=== PATIENT | female | born 1970 | race Caucasian/White ===

== ENCOUNTER → 2016-10-01 | Outpatient (CLI) | payer MEDICARE, MEDICAID ==
[2015-07-25 06:39] VITALS: BP 107/58
[~2016-10-01] MED LIST: ABILIFY 15MG TA15 MG PO; ABILIFY20 MG PO; ADVAIR IH; AMOXICILLIN 50500 MG PO; BACTRIM DS 8001 TA1 PO; CALCIUM 500 + D1 TAB PO; CEFDINIR300 MG PO; CELEBREX 200MG200 MG PO; CELEBREX200 MG PO; CYMBALTA 60MG60 MG PO; DURAGESIC TD; FENTANYL TD; FERROUS SULFAT325 M1 PO; FLAGYL500 M1 PO; FLAX SEED OIL1000 MG PO; FLEXERIL10 MG PO; FLOVENT0.11 MG/AC IH; FOLIC ACID1 MG PO; FUROSEMIDE40 MG PO; GABAPENTIN300 MG PO; K-DUR 10 MEQ T10 MEQ PO; KLONOPIN 1MG1 M1 PO; KLONOPIN1 MG PO; KLONOPIN2 MG PO; LAMICTAL 100MG100 MG PO; LANSOPRAZOLE30 MG PO; LEVOTHROID0.137 MG PO; MIRALAX PA17 GM/Dose PO; NEXIUM40 MG PO; NORCO 325 MG-51 TAB PO; PEG 335017 GM/Dose PO; PLAQUENIL 200M200 MG PO; PREDNISONE 2.52.5 MG PO; PREDNISONE 5MG5 MG PO; PREDNISONE10 MG PO; PREVACID 30MG30 M1 PO; PROVENTIL0.09 MG/Ac IH; Patient's Own Medication SQ; REGLAN10 M2 PO; SYNTHROID 0.10.15 MG PO; SYNTHROID0.125 MG/T PO; THERAGRAN1 TA1 PO; TRIAMCINOLONE0.1% TP; VICTOZA6 MG/ML SQ; VITAMIN C PURE500 MG PO; VITAMIN D310000 UNI1 PO; VITAMIN D50000 I2 PO; WARFARIN SODIUM1 MG PO; WARFARIN4 MG PO; XANAX1 MG PO; [UNRECOGNIZED DRUG - OTHER] TD
== END ==
LOC: LAB 11:51
DX: E11.9 Type 2 diabetes mellitus without complications (principal)

== ENCOUNTER → 2017-01-21 | Outpatient (CLI) | payer MEDICARE, MEDICAID ==
[2015-07-25 06:39] VITALS: BP 107/58
[~2017-01-21] VITALS: Ht 157.5 cm; Wt 115.3 kg
== END ==
LOC: AMSURD 11:55 → LAB 11:55
DX: M06.89 Other specified rheumatoid arthritis, multiple sites (principal); E61.1 Iron deficiency; E11.9 Type 2 diabetes mellitus without complications; M81.0 Age-related osteoporosis without current pathological fracture; E78.2 Mixed hyperlipidemia
CPT/HCPCS: A4212; J1644

== ENCOUNTER → 2017-04-07 | Outpatient (CLI) | payer MEDICARE, MEDICAID ==
[~2017-04-07] VITALS: Ht 157.5 cm; Wt 108.2 kg
[2017-04-07 12:34] LABS: BASO # 0.1 (0.02-0.10); EOS # 0.2 (0.04-0.40); EOS % 1.5 % (1.0-5.0); HEMATOCRIT 39.8 % (37.0-47.0); HEMOGLOBIN 12.8 g/dL (12.5-16.0); MEAN CELL VOLUME 92 fl (78-100); MEAN CORPUSCULAR HEMOGLOBIN 30 pg (27-31); MEAN CORPUSCULAR HGB CONC 32 g/dL (33-37); MEAN PLATELET VOLUME 9.7 fl (7.4-10.4); MONO # 1.2 (0.20-0.80); PLATELET COUNT 374 K/mm3 (130-400); RED BLOOD COUNT 4.34 M/mm3 (4.10-5.30)
--- NOTE | 2017-04-07 12:35 | NUR ---
PT ARRIVES TO OUTPATIENT CLINIC TO HAVE LAB DRAWN FROM PORT AT THIS TIME, NO OTHER PROCEDURES OR TREATMENTS COMPLETED OUTSIDE OF LAB DRAW AND PORT ACCESS/DEACESS
[2017-04-07 12:36] VITALS: BP 115/62
[2017-04-07 12:36] LABS: NEU # 10.6 (1.40-6.50)
--- NOTE | 2017-04-07 12:47 | NUR ---
pt here less than 30 minutes, no need to obtain second set of vital signs
[2017-04-07 12:53] LABS: ALBUMIN 3.9 g/dL (3.5-5.0); BUN/CREATININE RATIO 21.9 (6.0-26.0); CALCIUM 8.9 mg/dL (8.4-10.2); POTASSIUM 3.6 mmol/L (3.6-5.0); TOTAL BILIRUBIN 0.3 mg/dL (0.2-1.3); TOTAL PROTEIN 7.9 g/dL (6.3-8.2)
== END ==
LOC: LAB 11:58
PROVIDERS: Internal Medicine
DX: M06.89 Other specified rheumatoid arthritis, multiple sites (principal); K31.84 Gastroparesis
CPT/HCPCS: J1644

== ENCOUNTER → 2017-04-14 | Outpatient (CLI) | payer MEDICARE, MEDICAID ==
[2017-04-07 12:36] VITALS: BP 115/62
[~2017-04-14] VITALS: Ht 157.5 cm; Wt 108.2 kg
[2017-04-14 12:07] LABS: EOS # 0.5 (0.04-0.40); EOS % 4.3 % (1.0-5.0); HEMATOCRIT 39.7 % (37.0-47.0); HEMOGLOBIN 12.5 g/dL (12.5-16.0); MEAN CELL VOLUME 92 fl (78-100); MEAN CORPUSCULAR HEMOGLOBIN 29 pg (27-31); MEAN CORPUSCULAR HGB CONC 32 g/dL (33-37); MEAN PLATELET VOLUME 9.9 fl (7.4-10.4); MONO # 0.8 (0.20-0.80); PLATELET COUNT 349 K/mm3 (130-400); RED BLOOD COUNT 4.31 M/mm3 (4.10-5.30); RED CELL DISTRIBUTION WIDTH 13.2 % (11.5-14.5); WHITE BLOOD COUNT 12.6 K/mm3 (4.8-10.8)
[2017-04-14 12:08] LABS: NEU # 9.3 (1.40-6.50)
== END ==
LOC: AMSURD 11:07 → LAB 11:07
PROVIDERS: Internal Medicine
DX: M06.89 Other specified rheumatoid arthritis, multiple sites (principal)
CPT/HCPCS: A4212; A4301

== ENCOUNTER → 2017-04-27 | Outpatient (CLI) | payer MEDICARE, MEDICAID ==
[~2017-04-27] VITALS: Ht 157.5 cm; Wt 108.2 kg
[2017-04-27 11:15] VITALS: BP 118/64
[2017-04-27 12:12] LABS: BASO # 0.1 (0.02-0.10); EOS # 0.4 (0.04-0.40); EOS % 2.9 % (1.0-5.0); HEMATOCRIT 38.7 % (37.0-47.0); HEMOGLOBIN 12.3 g/dL (12.5-16.0); MEAN CELL VOLUME 94 fl (78-100); MEAN CORPUSCULAR HEMOGLOBIN 30 pg (27-31); MEAN CORPUSCULAR HGB CONC 32 g/dL (33-37); MONO # 0.9 (0.20-0.80); PLATELET COUNT 352 K/mm3 (130-400); RED BLOOD COUNT 4.13 M/mm3 (4.10-5.30); RED CELL DISTRIBUTION WIDTH 13.1 % (11.5-14.5); WHITE BLOOD COUNT 13.4 K/mm3 (4.8-10.8)
[2017-04-27 12:20] LABS: BUN/CREATININE RATIO 14.2 (6.0-26.0); POTASSIUM 3.7 mmol/L (3.6-5.0)
[2017-04-27 12:23] LABS: NEU # 10.1 (1.40-6.50)
== END ==
LOC: AMSURD 10:59
PROVIDERS: Internal Medicine
DX: E11.9 Type 2 diabetes mellitus without complications (principal); D72.829 Elevated white blood cell count, unspecified; E27.49 Other adrenocortical insufficiency
CPT/HCPCS: A4301; J1644

== ENCOUNTER → 2017-08-03 | Outpatient (CLI) | payer MEDICARE, MEDICAID ==
[~2017-08-03] VITALS: Ht 157.5 cm; Wt 108.2 kg
[~2017-08-03] MED LIST changes: +SYMBICORT1 AE2 IH
[2017-08-03 13:22] VITALS: BP 132/76
[2017-08-03 13:23] LABS: EOS # 0.2 (0.04-0.40); EOS % 1.5 % (1.0-5.0); HEMATOCRIT 40.2 % (37.0-47.0); HEMOGLOBIN 12.6 g/dL (12.5-16.0); LYMPH# 1.8 (1.50-4.00); MEAN CELL VOLUME 93 fl (78-100); MEAN CORPUSCULAR HEMOGLOBIN 29 pg (27-31); MEAN CORPUSCULAR HGB CONC 31 g/dL (33-37); MEAN PLATELET VOLUME 9.1 fl (7.4-10.4); MONO # 1.1 (0.20-0.80); PLATELET COUNT 348 K/mm3 (130-400); RED BLOOD COUNT 4.33 M/mm3 (4.10-5.30); RED CELL DISTRIBUTION WIDTH 13.3 % (11.5-14.5); WHITE BLOOD COUNT 13.8 K/mm3 (4.8-10.8)
[2017-08-03 13:38] LABS: ALBUMIN 3.8 g/dL (3.5-5.0); BUN/CREATININE RATIO 13.5 (6.0-26.0); CALCIUM 8.8 mg/dL (8.4-10.2); POTASSIUM 3.7 mmol/L (3.6-5.0); TOTAL BILIRUBIN 0.1 mg/dL (0.2-1.3); TOTAL PROTEIN 7.6 g/dL (6.3-8.2)
[2017-08-03 14:22] LABS: NEU # 10.6 (1.40-6.50)
[2017-08-03 14:35] LABS: ERYTHROCYTE SEDIMENTATION RATE 56 mm/hr (0-20)
[2017-08-04 00:02] LABS: ESTRADIOL 94 pg/mL (()); FOLLICLE STIMULATING HORMONE 3.8 mIU/mL (()); LUTENIZING HORMONE 3.7 mIU/mL (())
== END ==
LOC: AMSURD 12:45
PROVIDERS: Internal Medicine
DX: E61.1 Iron deficiency (principal); E11.9 Type 2 diabetes mellitus without complications; M06.89 Other specified rheumatoid arthritis, multiple sites; M81.0 Age-related osteoporosis without current pathological fracture; E78.2 Mixed hyperlipidemia; E27.40 Unspecified adrenocortical insufficiency

== ENCOUNTER → 2017-10-07 | Outpatient (CLI) | payer MEDICARE, MEDICAID ==
[~2017-10-07] VITALS: Ht 157.5 cm; Wt 119.1 kg
[2017-10-07 13:02] VITALS: BP 102/54
[2017-10-07 13:27] LABS: EOS # 0.5 (0.04-0.40); EOS % 4.1 % (1.0-5.0); HEMATOCRIT 38.6 % (37.0-47.0); HEMOGLOBIN 12.4 g/dL (12.5-16.0); LYMPH# 2.1 (1.50-4.00); MEAN CELL VOLUME 93 fl (78-100); MEAN CORPUSCULAR HEMOGLOBIN 30 pg (27-31); MEAN CORPUSCULAR HGB CONC 32 g/dL (33-37); MEAN PLATELET VOLUME 9.6 fl (7.4-10.4); MONO # 0.9 (0.20-0.80); NEU # 7.9 (1.40-6.50); PLATELET COUNT 328 K/mm3 (130-400); RED BLOOD COUNT 4.16 M/mm3 (4.10-5.30); RED CELL DISTRIBUTION WIDTH 13.1 % (11.5-14.5); WHITE BLOOD COUNT 11.5 K/mm3 (4.8-10.8)
[2017-10-07 13:49] LABS: ALBUMIN 3.7 g/dL (3.5-5.0); BUN/CREATININE RATIO 20.9 (6.0-26.0); CALCIUM 8.8 mg/dL (8.4-10.2); POTASSIUM 3.9 mmol/L (3.6-5.0); TOTAL BILIRUBIN 0.1 mg/dL (0.2-1.3); TOTAL PROTEIN 7.5 g/dL (6.3-8.2)
[2017-10-07 14:16] LABS: PROTHROMBIN TIME 10.5 SECONDS (9.0-12.0)
[2017-10-07 14:39] LABS: PH-URINE 5.5 (5.0 - 8.0); URINE APPEARANCE CLEAR; URINE BILIRUBIN NEGATIVE (NEGATIVE); URINE BLOOD NEGATIVE (NEGATIVE); URINE COLOR YELLOW; URINE GLUCOSE NEGATIVE (NEGATIVE); URINE KETONE NEGATIVE (NEGATIVE); URINE LEUKOCYTE ESTERASE NEGATIVE (NEGATIVE); URINE NITRATE NEGATIVE (NEGATIVE); URINE PROTEIN(semi-quant) NEGATIVE (NEGATIVE); URINE UROBILINOGEN NORMAL (NORMAL); URINE WBC 0-1 /hpf (0-3)
[2017-10-08 00:21] LABS: CREATININE OTHER SOURCE 38 mg/dL (())
== END ==
LOC: AMSURD 12:02
PROVIDERS: Internal Medicine
DX: Z01.812 Encounter for preprocedural laboratory examination (principal); Z01.818 Encounter for other preprocedural examination; E27.49 Other adrenocortical insufficiency; Z79.01 Long term (current) use of anticoagulants; E03.4 Atrophy of thyroid (acquired); E11.9 Type 2 diabetes mellitus without complications; K90.89 Other intestinal malabsorption; M81.0 Age-related osteoporosis without current pathological fracture; J98.4 Other disorders of lung
CPT/HCPCS: A4212; J1644

== ENCOUNTER → 2017-11-24 | Outpatient (CLI) | payer MEDICARE, MEDICAID ==
[~2017-11-24] VITALS: Ht 157.5 cm; Wt 115.9 kg
[2017-11-24 11:58] LABS: EOS # 0.2 (0.04-0.40); EOS % 1.6 % (1.0-5.0); HEMATOCRIT 41.5 % (37.0-47.0); HEMOGLOBIN 13.1 g/dL (12.5-16.0); LYMPH# 1.4 (1.50-4.00); MEAN CELL VOLUME 93 fl (78-100); MEAN CORPUSCULAR HEMOGLOBIN 29 pg (27-31); MEAN CORPUSCULAR HGB CONC 32 g/dL (33-37); MEAN PLATELET VOLUME 9.6 fl (7.4-10.4); MONO # 0.8 (0.20-0.80); NEU # 8.6 (1.40-6.50); PLATELET COUNT 370 K/mm3 (130-400); RED BLOOD COUNT 4.48 M/mm3 (4.10-5.30); RED CELL DISTRIBUTION WIDTH 13.4 % (11.5-14.5); WHITE BLOOD COUNT 11.1 K/mm3 (4.8-10.8)
[2017-11-24 12:05] LABS: ALBUMIN 4.1 g/dL (3.5-5.0); BUN/CREATININE RATIO 16.1 (6.0-26.0); CALCIUM 8.5 mg/dL (8.4-10.2); POTASSIUM 3.6 mmol/L (3.6-5.0); TOTAL BILIRUBIN 0.2 mg/dL (0.2-1.3); TOTAL PROTEIN 8.3 g/dL (6.3-8.2)
[2017-11-24 12:40] VITALS: BP 136/86
== END ==
LOC: AMSURD 10:39
PROVIDERS: Internal Medicine
DX: E11.9 Type 2 diabetes mellitus without complications (principal); E27.49 Other adrenocortical insufficiency
CPT/HCPCS: A4301

== ENCOUNTER → 2017-12-09 | Outpatient (CLI) | payer MEDICARE, MEDICAID ==
[2017-11-24 12:40] VITALS: BP 136/86
== END ==
LOC: RAD 12:11
DX: Z87.81 Personal history of (healed) traumatic fracture (principal)

== ENCOUNTER → 2018-02-10 | Outpatient (CLI) | payer MEDICARE, MEDICAID ==
[~2018-02-10] VITALS: Ht 157.5 cm; Wt 115.9 kg
[2018-02-10 11:55] VITALS: BP 138/75
[2018-02-10 13:35] LABS: EOS # 0.2 (0.04-0.40); EOS % 1.9 % (1.0-5.0); HEMATOCRIT 39.1 % (37.0-47.0); HEMOGLOBIN 12.4 g/dL (12.5-16.0); LYMPH# 1.6 (1.50-4.00); MEAN CELL VOLUME 92 fl (78-100); MEAN CORPUSCULAR HEMOGLOBIN 29 pg (27-31); MEAN CORPUSCULAR HGB CONC 32 g/dL (33-37); NEU # 8.1 (1.40-6.50); PLATELET COUNT 324 K/mm3 (130-400); RED BLOOD COUNT 4.24 M/mm3 (4.10-5.30); RED CELL DISTRIBUTION WIDTH 14.5 % (11.5-14.5); WHITE BLOOD COUNT 10.9 K/mm3 (4.8-10.8)
[2018-02-10 13:40] LABS: ALBUMIN 3.8 g/dL (3.5-5.0); CALCIUM 8.6 mg/dL (8.4-10.2); POTASSIUM 3.9 mmol/L (3.6-5.0); TOTAL BILIRUBIN 0.2 mg/dL (0.2-1.3); TOTAL PROTEIN 7.1 g/dL (6.3-8.2)
== END ==
LOC: AMSURD 11:31
PROVIDERS: Internal Medicine
DX: Z01.812 Encounter for preprocedural laboratory examination (principal); E11.9 Type 2 diabetes mellitus without complications; K90.9 Intestinal malabsorption, unspecified; E27.40 Unspecified adrenocortical insufficiency; M81.0 Age-related osteoporosis without current pathological fracture
CPT/HCPCS: J1644

== ENCOUNTER → 2018-04-21 | Outpatient (CLI) | payer MEDICARE, MEDICAID ==
[2018-02-10 11:55] VITALS: BP 138/75
== END ==
LOC: RAD 12:19
DX: R06.02 Shortness of breath (principal)

== ENCOUNTER → 2018-05-05 | Outpatient (CLI) | payer MEDICARE, MEDICAID ==
[~2018-05-05] VITALS: Ht 157.5 cm; Wt 115.9 kg
[2018-05-05 12:01] VITALS: BP 129/94
[2018-05-05 12:28] LABS: EOS # 0.4 (0.04-0.40); EOS % 3.5 % (1.0-5.0); HEMATOCRIT 39.8 % (37.0-47.0); HEMOGLOBIN 12.8 g/dL (12.5-16.0); LYMPH# 2.1 (1.50-4.00); MEAN CELL VOLUME 92 fl (78-100); MEAN CORPUSCULAR HEMOGLOBIN 30 pg (27-31); MEAN CORPUSCULAR HGB CONC 32 g/dL (33-37); MEAN PLATELET VOLUME 9.7 fl (7.4-10.4); NEU # 6.7 (1.40-6.50); PLATELET COUNT 323 K/mm3 (130-400); RED BLOOD COUNT 4.34 M/mm3 (4.10-5.30); RED CELL DISTRIBUTION WIDTH 13.6 % (11.5-14.5); WHITE BLOOD COUNT 10.2 K/mm3 (4.8-10.8)
[2018-05-05 13:12] LABS: TOTAL BILIRUBIN 0.1 mg/dL (0.2-1.3); TOTAL PROTEIN 7.2 g/dL (6.3-8.2)
== END ==
LOC: AMSURD 11:23
PROVIDERS: Internal Medicine
DX: Z01.812 Encounter for preprocedural laboratory examination (principal); E27.40 Unspecified adrenocortical insufficiency; K90.9 Intestinal malabsorption, unspecified; E11.9 Type 2 diabetes mellitus without complications; M81.0 Age-related osteoporosis without current pathological fracture; M06.9 Rheumatoid arthritis, unspecified; Z95.828 Presence of other vascular implants and grafts

== ENCOUNTER → 2018-05-18 | Outpatient (CLI) | payer MEDICARE, MEDICAID ==
[2018-05-05 12:01] VITALS: BP 129/94
== END ==
LOC: RAD 16:04
DX: M95.4 Acquired deformity of chest and rib (principal); J98.4 Other disorders of lung; J18.9 Pneumonia, unspecified organism

== ENCOUNTER → 2018-06-15 | Outpatient (CLI) | payer MEDICARE, MEDICAID ==
[~2018-06-15] VITALS: Ht 157.5 cm; Wt 115.9 kg
[~2018-06-15] MED LIST changes: +BACITRACIN TOP O1 TU TOP; +BETA CAROT10000 UNIT PO; +CYCLOBENZAPRINE10 M1 PO; +DURAGESIC1 EAC3 TD; +DURAGESIC1 EACH TD; +FEOSOL325 MG PO; +FUROSEMIDE40 MG; +GLYCOLAX119 GM PO; +IPRATROPIUM BROM3 M1 IH; +LASIX20 M1 PO; +LEVAQUIN 5500 MG/TA1 PO; +LYRICA 150MG C150 MG PO; +LYRICA75 MG PO; +MASON NATURAL L20 MG PO; +MULTIVITAMIN PO; +OMEGA 3 1,0001 EACH PO; +PLAQUENIL200 MG PO; +RECLAST5 MG/100 M IV; +RT ALBUTEROL CC18 GM IH; +SYNTHROID RP0.1 MG PO; +THERA TEARS1 EACH OP; +VICTOZA 3-0.6 MG/0.1 SQ; +XARELTO20 MG PO
[2018-06-15 10:51] LABS: EOS # 0.3 (0.04-0.40); EOS % 3.3 % (1.0-5.0); HEMATOCRIT 40.1 % (37.0-47.0); HEMOGLOBIN 12.7 g/dL (12.5-16.0); LYMPH# 1.9 (1.50-4.00); MEAN CELL VOLUME 93 fl (78-100); MEAN CORPUSCULAR HEMOGLOBIN 29 pg (27-31); MEAN CORPUSCULAR HGB CONC 32 g/dL (33-37); MEAN PLATELET VOLUME 10.1 fl (7.4-10.4); MONO # 0.9 (0.20-0.80); NEU # 6.3 (1.40-6.50); PLATELET COUNT 317 K/mm3 (130-400); RED BLOOD COUNT 4.32 M/mm3 (4.10-5.30); RED CELL DISTRIBUTION WIDTH 13.4 % (11.5-14.5); WHITE BLOOD COUNT 9.5 K/mm3 (4.8-10.8)
[2018-06-15 10:54] LABS: ALBUMIN 3.9 g/dL (3.5-5.0); CALCIUM 8.6 mg/dL (8.4-10.2); POTASSIUM 3.5 mmol/L (3.6-5.0); TOTAL BILIRUBIN 0.1 mg/dL (0.2-1.3); TOTAL PROTEIN 7.1 g/dL (6.3-8.2)
[2018-06-15 11:34] VITALS: BP 128/77
== END ==
LOC: LAB 09:22
PROVIDERS: Internal Medicine
DX: M06.9 Rheumatoid arthritis, unspecified (principal); Z95.828 Presence of other vascular implants and grafts

== ENCOUNTER → 2018-07-07 | Outpatient (CLI) | payer MEDICARE, MEDICAID ==
[2018-06-15 11:34] VITALS: BP 128/77
[2018-07-07 11:39] LABS: CALCIUM 8.7 mg/dL (8.4-10.2); HEMATOCRIT 40.9 % (37.0-47.0); HEMOGLOBIN 13.1 g/dL (12.5-16.0); MEAN CELL VOLUME 92 fl (78-100); MEAN CORPUSCULAR HEMOGLOBIN 30 pg (27-31); MEAN CORPUSCULAR HGB CONC 32 g/dL (33-37); MEAN PLATELET VOLUME 9.7 fl (7.4-10.4); PLATELET COUNT 301 K/mm3 (130-400); POTASSIUM 3.8 mmol/L (3.6-5.0); RED BLOOD COUNT 4.43 M/mm3 (4.10-5.30); RED CELL DISTRIBUTION WIDTH 13.8 % (11.5-14.5); TOTAL BILIRUBIN 0.4 mg/dL (0.2-1.3); TOTAL PROTEIN 7.6 g/dL (6.3-8.2); WHITE BLOOD COUNT 13.2 K/mm3 (4.8-10.8)
[2018-07-07 12:14] LABS: LYMPHOCYTE 10 % (20-51); MONOCYTE 6 % (3-10); NEUTROPHILS 80 % (42-75)
[2018-07-07 12:29] LABS: URINE APPEARANCE CLEAR; URINE COLOR YELLOW
[2018-07-07 12:30] LABS: URINE BILIRUBIN NEGATIVE (NEGATIVE); URINE BLOOD NEGATIVE (NEGATIVE); URINE GLUCOSE NEGATIVE (NEGATIVE); URINE KETONE NEGATIVE (NEGATIVE); URINE LEUKOCYTE ESTERASE NEGATIVE (NEGATIVE); URINE NITRATE NEGATIVE (NEGATIVE); URINE PROTEIN(semi-quant) NEGATIVE (NEGATIVE); URINE UROBILINOGEN NORMAL (NORMAL); URINE WBC 0-1 /hpf (0-3)
== END ==
LOC: RAD 11:12
PROVIDERS: Internal Medicine
DX: K76.0 Fatty (change of) liver, not elsewhere classified (principal); R10.31 Right lower quadrant pain; E11.9 Type 2 diabetes mellitus without complications; M06.9 Rheumatoid arthritis, unspecified

== ENCOUNTER → 2018-12-01 | Outpatient (CLI) | payer MEDICARE, MEDICAID ==
[~2018-12-01] VITALS: Ht 157.5 cm; Wt 115.9 kg
[2018-12-01 10:56] LABS: EOS # 0.3 (0.04-0.40); EOS % 3.6 % (1.0-5.0); HEMOGLOBIN 12.4 g/dL (12.5-16.0); LYMPH# 2.1 (1.50-4.00); MEAN CELL VOLUME 93 fl (78-100); MEAN CORPUSCULAR HEMOGLOBIN 29 pg (27-31); MEAN CORPUSCULAR HGB CONC 31 g/dL (33-37); MEAN PLATELET VOLUME 9.6 fl (7.4-10.4); MONO # 0.9 (0.20-0.80); PLATELET COUNT 300 K/mm3 (130-400); RED CELL DISTRIBUTION WIDTH 13.9 % (11.5-14.5); WHITE BLOOD COUNT 9.3 K/mm3 (4.8-10.8)
[2018-12-01 11:25] LABS: ALBUMIN 3.6 g/dL (3.5-5.0); CALCIUM 9.4 mg/dL (8.3-10.5); POTASSIUM 3.7 mmol/L (3.5-5.1); TOTAL BILIRUBIN 0.3 mg/dL (0.2-1.2); TOTAL PROTEIN 7.2 g/dL (6.4-8.3)
[2018-12-01 12:16] VITALS: BP 108/62
[2018-12-01 12:41] LABS: URINE COLOR YELLOW
[2018-12-01 12:42] LABS: URINE APPEARANCE CLEAR; URINE BILIRUBIN NEGATIVE (NEGATIVE); URINE BLOOD NEGATIVE (NEGATIVE); URINE GLUCOSE NEGATIVE (NEGATIVE); URINE KETONE NEGATIVE (NEGATIVE); URINE LEUKOCYTE ESTERASE NEGATIVE (NEGATIVE); URINE NITRATE NEGATIVE (NEGATIVE); URINE PROTEIN(semi-quant) TRACE mg/dL (NEGATIVE); URINE UROBILINOGEN NORMAL (NORMAL)
[2018-12-01 14:13] LABS: ERYTHROCYTE SEDIMENTATION RATE 78 mm/hr (0-20)
[2018-12-01 22:34] LABS: CREATININE OTHER SOURCE 8 mg/dL (())
== END ==
LOC: AMSURD 10:20 → LAB 10:20
PROVIDERS: Internal Medicine
DX: E11.9 Type 2 diabetes mellitus without complications (principal); M06.9 Rheumatoid arthritis, unspecified; E03.9 Hypothyroidism, unspecified; K90.9 Intestinal malabsorption, unspecified; E61.1 Iron deficiency; M81.0 Age-related osteoporosis without current pathological fracture
CPT/HCPCS: J1644

== ENCOUNTER → 2019-01-05 | Outpatient (CLI) | payer MEDICARE, MEDICAID ==
[2018-12-01 12:16] VITALS: BP 108/62
== END ==
LOC: RAD 10:12
DX: R06.02 Shortness of breath (principal)

== ENCOUNTER → 2019-05-04 | Outpatient (CLI) | payer MEDICARE, MEDICAID ==
[2019-02-24 11:05] VITALS: BP 132/75
[~2019-05-04] MED LIST changes: +AMBIEN CR12.5 MG PO; +DULCOLAX PO; +GAVILAX17 GM/Dose PO; +KLONOPIN 0.5MG0.5 MG PO; +LASIX80 M1 PO; +LEVAQUIN 750MG750 M1 PO; +NATURAL VITAM1000 MG PO
== END ==
LOC: RAD 14:58
DX: Z87.01 Personal history of pneumonia (recurrent) (principal)

== ENCOUNTER → 2019-06-07 | Outpatient (CLI) | payer MEDICARE, MEDICAID ==
[~2019-06-07] VITALS: Ht 157.5 cm; Wt 120.5 kg
[2019-06-07 11:36] VITALS: BP 117/65
[2019-06-07 11:37] LABS: BASO # 0.1 (0.02-0.10); EOS # 0.4 (0.04-0.40); EOS % 4.5 % (1.0-5.0); HEMATOCRIT 39.9 % (37.0-47.0); HEMOGLOBIN 12.6 g/dL (12.5-16.0); LYMPH# 1.9 (1.50-4.00); MEAN CELL VOLUME 94 fl (78-100); MEAN CORPUSCULAR HEMOGLOBIN 30 pg (27-31); MEAN CORPUSCULAR HGB CONC 32 g/dL (33-37); MEAN PLATELET VOLUME 10.2 fl (7.4-10.4); MONO # 0.8 (0.20-0.80); NEU # 6.4 (1.40-6.50); PLATELET COUNT 317 K/mm3 (130-400); RED BLOOD COUNT 4.24 M/mm3 (4.10-5.30); RED CELL DISTRIBUTION WIDTH 12.7 % (11.5-14.5); WHITE BLOOD COUNT 9.6 K/mm3 (4.8-10.8)
[2019-06-07 11:45] LABS: POTASSIUM 3.9 mmol/L (3.5-5.1)
[2019-06-07 11:46] LABS: ALBUMIN 3.6 g/dL (3.5-5.0)
[2019-06-07 11:47] LABS: CALCIUM 8.8 mg/dL (8.3-10.5)
[2019-06-07 11:48] LABS: TOTAL PROTEIN 7.1 g/dL (6.4-8.3)
[2019-06-07 11:50] LABS: TOTAL BILIRUBIN 0.2 mg/dL (0.2-1.2)
[2019-06-07 11:55] LABS: MAGNESIUM 1.81 mg/dL (1.60-2.60)
[2019-06-07 12:40] LABS: ERYTHROCYTE SEDIMENTATION RATE 54 mm/hr (0-20)
== END ==
LOC: AMSURD 10:58
PROVIDERS: Internal Medicine
DX: E11.9 Type 2 diabetes mellitus without complications (principal); E61.1 Iron deficiency; K90.9 Intestinal malabsorption, unspecified; M06.9 Rheumatoid arthritis, unspecified; E03.9 Hypothyroidism, unspecified
CPT/HCPCS: J1644

== ENCOUNTER 2019-08-24 10:39 | Inpatient (IN) | payer MEDICARE, MEDICAID ==
[~2019-08-24] VITALS: Ht 162.6 cm; Wt 119.1 kg
[~2019-08-24 10:39] MED LIST changes: -BACITRACIN3.5 GM OP; -CYMBALTA60 M1 PO; -GAVILAX17 GM PO; -GLUCOPHAGE500 MG/TAB PO; -HYDROCORTISONE 10MG PO; -LAMICTAL150 MG PO; -POTASSIUM CHLO10 ME6 PO; -TIROSINT75 MC1 PO
[2019-08-24] MEDS ORDERED: GLUCOPHAGE500 MG/TAB PO (10:49)
[2019-08-24] MEDS ORDERED: POTASSIUM CHLO10 ME6 PO (10:52)
[2019-08-24] MEDS ORDERED: GAVILAX17 GM PO (10:53)
[2019-08-24] MEDS ORDERED: IPRATROPIUM BROM3 M1 IH (10:57)
[2019-08-24] MEDS ORDERED: BACITRACIN3.5 GM OP (11:00)
[2019-08-24] MEDS ORDERED: VICTOZA 3-0.6 MG/0.1 SQ (11:07)
[2019-08-24 11:36] VITALS: BP 150/86
[2019-08-24 11:57] LABS: HEMATOCRIT 42.5 % (37.0-47.0); HEMOGLOBIN 13.4 g/dL (12.5-16.0); MEAN CELL VOLUME 93 fl (78-100); MEAN CORPUSCULAR HEMOGLOBIN 30 pg (27-31); MEAN CORPUSCULAR HGB CONC 32 g/dL (33-37); PLATELET COUNT 279 K/mm3 (130-400); RED BLOOD COUNT 4.55 M/mm3 (4.10-5.30); RED CELL DISTRIBUTION WIDTH 12.5 % (11.5-14.5); WHITE BLOOD COUNT 7.1 K/mm3 (4.8-10.8)
[2019-08-24 12:06] LABS: POTASSIUM 3.6 mmol/L (3.5-5.1)
[2019-08-24 12:08] LABS: TOTAL PROTEIN 7.7 g/dL (6.4-8.3)
[2019-08-24 12:10] LABS: TOTAL BILIRUBIN 0.4 mg/dL (0.2-1.2)
--- NOTE | 2019-08-24 12:15 | NUR ---
PT ADMITTED TO ROOM 208 PER , PT STABLE AND BREATHING ON 3L O2 VIA NC, PT CONTINUOUSLY ON 3L AT HOME WELL, PORT ACCESSED, BRISK BLOOD RETURN, LABS OBTAINED AND SENT TO LAB, WILL COLLECT UA WITH PT'S FIRST VOID, PT AMBULATORY AROUND ROOM, STEADY GAIT, SOB WITH REST AND DURING EXERTION, O2 95% ON 3L WITH AMBULATION, FULLY ALERT AND ORIENTED, SMILING AND TALKATIVE WITH STAFF, DENIES FURTHER NEEDS, ORIENTED TO NEW ROOM AND CALL LIGHT WELL BED ALARM SYSTEM
[2019-08-24 12:16] LABS: LYMPHOCYTE 29 % (20-51); MONOCYTE 13 % (3-10); NEUTROPHILS 57 % (42-75)
--- NOTE | 2019-08-24 12:29 | NUR ---
PT HAS 2 FENTANYL PATCHES ON UPPER BACK, 100MCG FENTANYL PATCH AND 25MCG FENTANYL PATCH, PT REPORTS SHE CHANGED THEM YESTERDAY, SO THEY WILL BE DUE TO BE CHANGED TOMORROW
[2019-08-24 12:55] LABS: URINE APPEARANCE CLEAR; URINE COLOR YELLOW
[2019-08-24 12:56] LABS: URINE BILIRUBIN NEGATIVE (NEGATIVE); URINE BLOOD NEGATIVE (NEGATIVE); URINE GLUCOSE NEGATIVE (NEGATIVE); URINE KETONE NEGATIVE (NEGATIVE); URINE LEUKOCYTE ESTERASE NEGATIVE (NEGATIVE); URINE NITRATE NEGATIVE (NEGATIVE); URINE PROTEIN(semi-quant) TRACE mg/dL (NEGATIVE); URINE UROBILINOGEN NORMAL (NORMAL)
[2019-08-24 14:00] VITALS: BP 143/80
[2019-08-24] MEDS ORDERED: KLONOPIN 0.5MG0.5 MG PO (17:10)
[2019-08-24] MEDS ORDERED: TIROSINT75 MC1 PO (17:11)
[2019-08-24] MEDS ORDERED: LYRICA 150MG C150 MG PO ×2 (17:12→17:13)
[2019-08-24] MEDS ORDERED: LAMICTAL150 MG PO (17:15)
[2019-08-24] MEDS ORDERED: HYDROCORTISONE 10MG PO ×2 (17:18)
[2019-08-24] MEDS ORDERED: CYMBALTA60 M1 PO (17:21)
[2019-08-24 18:11] VITALS: BP 135/78
--- NOTE | 2019-08-24 19:30 | NUR ---
Report received from Sadie Srinivasan RN
[2019-08-24 22:11] VITALS: BP 113/68
--- NOTE | 2019-08-24 22:20 | NUR ---
Pt awake and a/o x 3, sitting up in bed watching TV. Denied having any pain or needs. Pt informed me she was no longer taking Victoza SQ. That she was now on metformin 3000mg PO every day. I reviewed her home medication and told her that her home medication list show she was taking metformin 1500mg PO daily. She then stated, "oh, that's right, we hadn't worked up to 3000mg yet." Dr Martin called and notified. Order received to [facility] victoza. Dr Martin notified of blood sugar, order received from insulin novolin R 5units SQ now.
[2019-08-25 01:44] VITALS: BP 112/57
[2019-08-25 06:19] VITALS: BP 138/62
--- NOTE | 2019-08-25 07:50 | NUR ---
Report given to Missy Hoang RN
[2019-08-25 10:38] VITALS: BP 131/75
--- NOTE | 2019-08-25 10:38 | NUR ---
EXCELSIOR MACHINE FEEDER REPORTS PT IS "NOT NORMAL, SHE IS FALLING ASLEEP MID CONVERSATION AND JUST DOES NOT SEEM RIGHT," THIS NURSE PRESENTS TO ROOM TO ASSESS PT, PT IS SITTING UP IN CHAIR, DIAPHORETIC AND FLUSHED, PT ANSWERS QUESTIONS APPROPRIATELY BUT DOES HAVE INTERMITTENT CONFUSION, PT REPORTS SHORT TERM MEMORY LOSS PER BASELINE, PT'S VITAL SIGNS AND BG OBTAINED, BP:131/75 HR:106 RR:20 02:94% ON 3L O2 VIA NC, TEMP:97.9, PT KEEPS STATING "I AM JUST TIRED, I DIDN'T SLEEP AT ALL LAST NIGHT, THIS IS NORMAL FOR ME," PT ASSISTED INTO BED, THIS NURSE ASSISTED IN STARTING A [employer] DEVOTIONAL ON PT'S PHONE FOR HER PER HER REQUEST, LIGHTS DIMMED, PT REPORTS SHE IS COMFORTABLE IN BED, A FAN AND BLANKET IS PROVIDED FOR COMFORT, PT LESS FLUSHED UPON EXITING ROOM AND LESS DIAPHORETIC, THIS NURSE ASSESSED PT FOR APPROX 10 MINUTES AND DID NOTICE AND IMPROVEMENT IN MENTATION AND PHYSICAL APPEARANCE THROUGHOUT THE CONVERSATION, PT IN BED WITH CALL LIGHT WITHIN REACH AND DOOR OPEN UPON REQUEST UPON EXITING ROOM, NOTIFIED JIMMIE RAINEY RN (PT'S PRIMARY NURSE), JIMMIE Huertas STATES SHE IS GOING TO NOTIFY
[2019-08-25 14:20] VITALS: BP 154/78
[2019-08-25 18:50] VITALS: BP 123/67
--- NOTE | 2019-08-25 21:30 | NUR ---
Patient alert and oriented x 4 and watching television. Patient's blood glucose at 252 so provided 6 units of novolog on sliding scale. Lungs ausculated and lower bases bilaterally diminished. Oxygen at 2L upon assessment so O2 changed to 3L per order and 3L is patients oxygen level at home. Patient reports normal 6/10 pain in mid back as her baseline and refused medication. Patient educated to rinse mouth after breathing treatments to prevent thrush. Patient confirmed understanding. Central line, port a cath, showed blood return and was flushed with 10ml of NS. Patient odor indicates need for proper hygiene care but refuses showers. Patient says that showers cause pain in her legs.
[2019-08-25 22:47] VITALS: BP 131/78
[2019-08-26] VITALS (7 sets, daily range): BP systolic 107–133; BP diastolic 65–91
--- NOTE | 2019-08-26 07:21 | NUR ---
Report given to ROSA MARIA Ba.
--- NOTE | 2019-08-26 08:30 | NUR ---
Pt sitting up in chair at bedside. Cheerful. a/o x 4 02 at 2L/NC. Right chest port remains accessed - clamped. Drsg intact. Pt states is SOB with exertion but denies SOB at rest. States has upper back pain - chronic. Pt reports she lives alone. Dad called to bring her some clean socks and will be in shortly. Pt refuses shower (water on legs feel like wax) but is agreeable to bath wipes to bath with. Reports bowels working well. Call light in reach and chair alarm on.
--- NOTE | 2019-08-26 11:45 | NUR ---
Pt ambulates in [place] w/ staff w/ oxygen at 2 l/NC w/ CGA. Ambulates about 50 ft - sp02 check 90-91% on 2 L/NC w/ HR of 105. Ambulates another approx 50 feet and sp02 check and HR the same. Returns to recliner in room for lunch. Pt drinking her 2 liter of diet coke at this beside - father to bring her more today as that is all she drinks. Call light in reach and chair alarm on.
--- NOTE | 2019-08-26 16:00 | NUR ---
Pt's dad here and brings her new socks etc.
--- NOTE | 2019-08-26 17:45 | NUR ---
Lungs with expiratory wheezes noted more on right than left in all dow. Possibly a few insp crackles in bases. 02 continues at 3 L/NC today. Refuses need for pain med for continued upper back pain.
--- NOTE | 2019-08-26 20:01 | NUR ---
Report to ROSA MARIA Wade
--- NOTE | 2019-08-26 21:00 | NUR ---
Patient resting in bed with HOB at 35degrees. 3L NC present. Patient denies dizzyness, SOB, or CP at this time. Found to have expiratory wheezes upon assessment. Scheduled nebulizers given. Patient does have some shaking noted with upper extremities durring assessment, does not appear to be consistant with activity. Patient reports it has improved. Assisted patient to bathroom, steady on feet, standby assist no walker, denies SOB with activity. Right subclavian port is accessed and flushes well. No S/S of concern. Patient reports she has chronic back pain at a level 5 to 6 and this is tolerable. Fentanyl patch is present and scheduled lyrica given. FSBS 356 per sliding scale order patient was given 10units novolog sub Q in lateral right upper arm. Reviewed S/S of hypoglycemia, call light within reach. Will continue to monitor.
[2019-08-27 02:23] VITALS: BP 157/76
[2019-08-27 05:53] VITALS: BP 137/80
[2019-08-27 10:04] VITALS: BP 136/78
[2019-08-27 14:15] VITALS: BP 153/89
--- NOTE | 2019-08-27 15:14 | NUR ---
Met with pt to discuss discharge plans. Pt currently lives alone but her father lives nearby and is able to help her as needed. Pt also receives house-hold care through [address] [place] [id number]. Pt feels the only thing she needs help with is bathing. Reports that she in not able to fully clean herself. [facility] unsure [facility] are [facility] to help with this task. Spoke with Birdie at [address] [place] [address] and she stated that the pt would need to ask her "workers" if they could provide bathing assistance. Also, will bring pt [employer]gov Home Health Agency List to see if she would be interested in HH.
--- NOTE | 2019-08-27 17:00 | NUR ---
Jessica Bartholomew APRN at bedside.
[2019-08-27 18:11] VITALS: BP 162/99
[2019-08-27 21:42] VITALS: BP 137/81
[2019-08-28 01:50] VITALS: BP 165/85
[2019-08-28 05:30] VITALS: BP 157/82
--- NOTE | 2019-08-28 08:55 | NUR ---
DC PAPERWORK REVIEWED AND UNDERSTOOD BY PT, NO NEW MEDICATIONS, PT EDUCATED TO MAKE A FOLLOW UP APPT WITH WITHIN THE NEXT 2 WEEKS, FATHER PROVIDING TRANSPORTATION HOME, PORT HEPARINIZED DEACCESSED, PT IN STABLE CONDITION, REPORTS GREAT IMPROVEMENT SINCE ADMISSION, SMILING AND COOPERATIVE, DENIES FURTHER NEEDS AT THIS TIME
== END 2019-08-28 08:55 | disposition home or self-care (01) | DRG 191 ==
LOC: MED/SURG 10:39
PROVIDERS: ADMIT Internal Medicine
DX: J44.1 Chronic obstructive pulmonary disease with (acute) exacerbation (principal); Z68.42 Body mass index [BMI] 45.0-49.9, adult; E11.43 Type 2 diabetes mellitus with diabetic autonomic (poly)neuropathy; K31.84 Gastroparesis; M06.9 Rheumatoid arthritis, unspecified; E03.9 Hypothyroidism, unspecified; J22 Unspecified acute lower respiratory infection; M32.9 Systemic lupus erythematosus, unspecified; M35.00 Sjogren syndrome, unspecified; M81.0 Age-related osteoporosis without current pathological fracture; F32.9 Major depressive disorder, single episode, unspecified; M35.9 Systemic involvement of connective tissue, unspecified; G47.33 Obstructive sleep apnea (adult) (pediatric); K21.9 Gastro-esophageal reflux disease without esophagitis; K76.0 Fatty (change of) liver, not elsewhere classified; E66.01 Morbid (severe) obesity due to excess calories; E78.5 Hyperlipidemia, unspecified; G89.4 Chronic pain syndrome; Z79.01 Long term (current) use of anticoagulants; Z91.14 Patient's other noncompliance with medication regimen
CPT/HCPCS: A4216; A4340; J0456; J0696; J1644; J1815; J2930; J7050

== ENCOUNTER → 2019-08-24 | Outpatient (CLI) | payer MEDICARE, MEDICAID ==
[2019-06-07 11:36] VITALS: BP 117/65
[~2019-08-24] MED LIST changes: +BACITRACIN3.5 GM OP; +CYMBALTA60 M1 PO; +GAVILAX17 GM PO; +GLUCOPHAGE500 MG/TAB PO; +HYDROCORTISONE 10MG PO; +LAMICTAL150 MG PO; +POTASSIUM CHLO10 ME6 PO; +TIROSINT75 MC1 PO
== END ==
LOC: RAD 09:12
DX: Z87.01 Personal history of pneumonia (recurrent) (principal)

== ENCOUNTER → 2019-10-25 | Outpatient (CLI) | payer MEDICARE, MEDICAID ==
[~2019-10-25] VITALS: Ht 162.6 cm; Wt 119.1 kg
[~2019-10-25] MED LIST changes: +BACITRACIN3.5 GM OP; +CYMBALTA60 M1 PO; +GAVILAX17 GM PO; +GLUCOPHAGE500 MG/TAB PO; +HYDROCORTISONE 10MG PO; +LAMICTAL150 MG PO; +POTASSIUM CHLO10 ME6 PO; +TIROSINT75 MC1 PO
[2019-10-25 11:58] LABS: BASO # 0.1 (0.02-0.10); EOS # 0.2 (0.04-0.40); EOS % 1.6 % (1.0-5.0); HEMATOCRIT 40.4 % (37.0-47.0); HEMOGLOBIN 12.8 g/dL (12.5-16.0); MEAN CELL VOLUME 92 fl (78-100); MEAN CORPUSCULAR HEMOGLOBIN 29 pg (27-31); MEAN CORPUSCULAR HGB CONC 32 g/dL (33-37); MEAN PLATELET VOLUME 10.1 fl (7.4-10.4); MONO # 0.8 (0.20-0.80); NEU # 8.7 (1.40-6.50); PLATELET COUNT 308 K/mm3 (130-400); RED BLOOD COUNT 4.39 M/mm3 (4.10-5.30); RED CELL DISTRIBUTION WIDTH 13.2 % (11.5-14.5); WHITE BLOOD COUNT 11.8 K/mm3 (4.8-10.8)
[2019-10-25 12:00] VITALS: BP 137/68
[2019-10-25 12:19] LABS: POTASSIUM 3.9 mmol/L (3.5-5.1)
[2019-10-25 12:20] LABS: CALCIUM 9.2 mg/dL (8.3-10.5)
[2019-10-25 12:22] LABS: TOTAL PROTEIN 7.4 g/dL (6.4-8.3)
[2019-10-25 12:24] LABS: TOTAL BILIRUBIN 0.3 mg/dL (0.2-1.2)
[2019-10-25 12:29] LABS: MAGNESIUM 1.85 mg/dL (1.60-2.60)
[2019-10-25 12:59] LABS: ERYTHROCYTE SEDIMENTATION RATE 81 mm/hr (0-20)
== END ==
LOC: AMSURD 11:36 → LAB 11:36
PROVIDERS: Internal Medicine
DX: E11.9 Type 2 diabetes mellitus without complications (principal); E61.1 Iron deficiency; K90.89 Other intestinal malabsorption; M06.89 Other specified rheumatoid arthritis, multiple sites; M81.0 Age-related osteoporosis without current pathological fracture; E27.49 Other adrenocortical insufficiency

== ENCOUNTER 2020-01-19 18:21 | Emergency (ER) | payer MEDICARE, MEDICAID ==
[~2020-01-19] VITALS: Ht 160 cm; Wt 107.3 kg
[~2020-01-19 18:21] MED LIST changes: -LAMICTAL150 MG PO
[2020-01-19 18:59] LABS: HEMATOCRIT 41.4 % (37.0-47.0); HEMOGLOBIN 13.2 g/dL (12.5-16.0); MEAN CELL VOLUME 92 fl (78-100); MEAN CORPUSCULAR HEMOGLOBIN 29 pg (27-31); MEAN CORPUSCULAR HGB CONC 32 g/dL (33-37); MEAN PLATELET VOLUME 9.7 fl (7.4-10.4); PLATELET COUNT 219 K/mm3 (130-400); RED BLOOD COUNT 4.51 M/mm3 (4.10-5.30); RED CELL DISTRIBUTION WIDTH 12.5 % (11.5-14.5); WHITE BLOOD COUNT 8.4 K/mm3 (4.8-10.8)
[2020-01-19 19:04] LABS: LYMPHOCYTE 13 % (20-51); NEUTROPHILS 73 % (42-75)
[2020-01-19 19:05] LABS: MONOCYTE 12 % (3-10)
[2020-01-19 19:09] LABS: ALBUMIN 3.9 g/dL (3.5-5.0); POTASSIUM 3.7 mmol/L (3.5-5.1)
[2020-01-19 19:11] LABS: CALCIUM 8.4 mg/dL (8.3-10.5)
[2020-01-19 19:12] LABS: TOTAL PROTEIN 8.1 g/dL (6.4-8.3)
[2020-01-19 19:14] LABS: TOTAL BILIRUBIN 0.4 mg/dL (0.2-1.2)
[2020-01-19 19:54] LABS: PH-URINE 5.5 (5.0 - 8.0); URINE APPEARANCE CLEAR; URINE BILIRUBIN NEGATIVE (NEGATIVE); URINE BLOOD NN (NEGATIVE); URINE COLOR YELLOW; URINE GLUCOSE NEGATIVE (NEGATIVE); URINE KETONE NEGATIVE (NEGATIVE); URINE LEUKOCYTE ESTERASE NEGATIVE (NEGATIVE); URINE NITRATE NEGATIVE (NEGATIVE); URINE PROTEIN(semi-quant) 1+ mg/dL (NEGATIVE); URINE UROBILINOGEN NORMAL (NORMAL)
[2020-01-19] MEDS ORDERED: CALCIUM 600 MG-1 TAB PO (19:58)
[2020-01-19] MEDS ORDERED: INCRUSE EL62.5 MCG/A IH (19:59)
[2020-01-19] MEDS ORDERED: THERA TEARS1 EACH OP (19:59)
[2020-01-19] MEDS ORDERED: TRULICITY1.5 MG/0.5 SC (20:01)
[2020-01-19] MEDS ORDERED: DILAUDID2 M1 PO (20:03)
[2020-01-19] MEDS ORDERED: MORGIDOX 1X100100 MG PO (20:30)
[2020-01-19 20:47] VITALS: BP 152/90
== END 2020-01-19 20:47 | disposition home or self-care (01) ==
LOC: ED 18:21
PROVIDERS: Family Medicine
DX: J44.9 Chronic obstructive pulmonary disease, unspecified (principal); F31.9 Bipolar disorder, unspecified; E11.9 Type 2 diabetes mellitus without complications; K21.9 Gastro-esophageal reflux disease without esophagitis; E03.9 Hypothyroidism, unspecified; E66.9 Obesity, unspecified; M06.9 Rheumatoid arthritis, unspecified; Z86.73 Personal history of transient ischemic attack (TIA), and cerebral infarction without residual deficits; Z87.01 Personal history of pneumonia (recurrent); Z99.81 Dependence on supplemental oxygen; Z87.891 Personal history of nicotine dependence; Z88.8 Allergy status to other drugs, medicaments and biological substances; Z79.51 Long term (current) use of inhaled steroids; Z79.01 Long term (current) use of anticoagulants; Z79.890 Hormone replacement therapy; Z79.84 Long term (current) use of oral hypoglycemic drugs

== ENCOUNTER → 2020-01-21 | Outpatient (CLI) | payer MEDICARE, MEDICAID ==
[~2020-01-21] VITALS: Ht 160 cm; Wt 107.3 kg
[~2020-01-21] MED LIST changes: +CALCIUM 600 MG-1 TAB PO; +DILAUDID2 M1 PO; +INCRUSE EL62.5 MCG/A IH; +MORGIDOX 1X100100 MG PO; +TRULICITY1.5 MG/0.5 SC
[2020-01-21 11:40] VITALS: BP 130/82
[2020-01-21 11:41] VITALS: BP 130/82
[2020-01-21 11:46] LABS: URINE WBC 0 /hpf (0-3)
[2020-01-21 11:53] LABS: HEMATOCRIT 39.6 % (37.0-47.0); HEMOGLOBIN 12.7 g/dL (12.5-16.0); MEAN CELL VOLUME 90 fl (78-100); MEAN CORPUSCULAR HEMOGLOBIN 29 pg (27-31); MEAN CORPUSCULAR HGB CONC 32 g/dL (33-37); MEAN PLATELET VOLUME 10.2 fl (7.4-10.4); PLATELET COUNT 206 K/mm3 (130-400); RED BLOOD COUNT 4.38 M/mm3 (4.10-5.30); RED CELL DISTRIBUTION WIDTH 12.6 % (11.5-14.5)
[2020-01-21 12:07] LABS: ALBUMIN 3.9 g/dL (3.5-5.0); POTASSIUM 3.4 mmol/L (3.5-5.1)
[2020-01-21 12:08] LABS: CALCIUM 8.9 mg/dL (8.3-10.5)
[2020-01-21 12:09] LABS: TOTAL PROTEIN 8.1 g/dL (6.4-8.3)
[2020-01-21 12:10] LABS: PH-URINE 5.5 (5.0 - 8.0); URINE APPEARANCE CLEAR; URINE BILIRUBIN NEGATIVE (NEGATIVE); URINE BLOOD NEGATIVE (NEGATIVE); URINE COLOR YELLOW; URINE GLUCOSE NEGATIVE (NEGATIVE); URINE KETONE NEGATIVE (NEGATIVE); URINE LEUKOCYTE ESTERASE NEGATIVE (NEGATIVE); URINE NITRATE NEGATIVE (NEGATIVE); URINE PROTEIN(semi-quant) TRACE mg/dL (NEGATIVE); URINE UROBILINOGEN NORMAL (NORMAL)
[2020-01-21 12:11] LABS: TOTAL BILIRUBIN 0.5 mg/dL (0.2-1.2)
[2020-01-21 12:16] LABS: MAGNESIUM 1.95 mg/dL (1.60-2.60)
[2020-01-21 12:52] LABS: ERYTHROCYTE SEDIMENTATION RATE 54 mm/hr (0-20)
[2020-01-21 22:13] LABS: CREATININE OTHER SOURCE 14 mg/dL (())
== END ==
LOC: AMSURD 11:09
PROVIDERS: Internal Medicine
DX: M06.89 Other specified rheumatoid arthritis, multiple sites (principal); E11.9 Type 2 diabetes mellitus without complications; E27.49 Other adrenocortical insufficiency
CPT/HCPCS: J1644

== ENCOUNTER → 2020-05-08 | Outpatient (CLI) | payer MEDICARE, MEDICAID ==
[~2020-05-08] VITALS: Ht 160 cm; Wt 107.3 kg
[2020-05-08 12:20] VITALS: BP 121/81
[2020-05-08 12:46] LABS: EOS # 0.3 (0.04-0.40); EOS % 2.1 % (1.0-5.0); HEMATOCRIT 40.3 % (37.0-47.0); HEMOGLOBIN 12.7 g/dL (12.5-16.0); MEAN CELL VOLUME 95 fl (78-100); MEAN CORPUSCULAR HEMOGLOBIN 30 pg (27-31); MEAN CORPUSCULAR HGB CONC 32 g/dL (33-37); MEAN PLATELET VOLUME 9.8 fl (7.4-10.4); MONO # 0.9 (0.20-0.80); PLATELET COUNT 374 K/mm3 (130-400); RED BLOOD COUNT 4.26 M/mm3 (4.10-5.30); RED CELL DISTRIBUTION WIDTH 12.9 % (11.5-14.5); WHITE BLOOD COUNT 12.4 K/mm3 (4.8-10.8)
[2020-05-08 12:47] LABS: NEU # 9.1 (1.40-6.50)
[2020-05-08 12:51] LABS: POTASSIUM 4.1 mmol/L (3.5-5.1)
[2020-05-08 12:52] LABS: ALBUMIN 3.9 g/dL (3.5-5.0)
[2020-05-08 12:53] LABS: CALCIUM 9.2 mg/dL (8.3-10.5)
[2020-05-08 12:54] LABS: TOTAL PROTEIN 7.7 g/dL (6.4-8.3)
[2020-05-08 12:56] LABS: TOTAL BILIRUBIN 0.2 mg/dL (0.2-1.2)
[2020-05-08 13:00] LABS: MAGNESIUM 1.93 mg/dL (1.60-2.60)
[2020-05-08 13:38] LABS: ERYTHROCYTE SEDIMENTATION RATE 70 mm/hr (0-30)
== END ==
LOC: AMSURD 11:59 → LAB 11:59 → EDSTATUS 14:04
PROVIDERS: Internal Medicine
DX: E11.9 Type 2 diabetes mellitus without complications (principal); D64.9 Anemia, unspecified; K90.9 Intestinal malabsorption, unspecified; E78.2 Mixed hyperlipidemia

== ENCOUNTER → 2020-08-14 | Outpatient (CLI) | payer MEDICARE, MEDICAID ==
[2020-08-14 11:30] VITALS: BP 132/74
[2020-08-14 11:55] LABS: EOS # 0.2 (0.04-0.40); EOS % 1.5 % (1.0-5.0); HEMATOCRIT 41.3 % (37.0-47.0); HEMOGLOBIN 12.8 g/dL (12.5-16.0); LYMPH# 2.2 (1.50-4.00); MEAN CELL VOLUME 94 fl (78-100); MEAN CORPUSCULAR HEMOGLOBIN 29 pg (27-31); MEAN CORPUSCULAR HGB CONC 31 g/dL (33-37); MEAN PLATELET VOLUME 9.5 fl (7.4-10.4); MONO # 1.4 (0.20-0.80); PLATELET COUNT 357 K/mm3 (130-400); RED BLOOD COUNT 4.38 M/mm3 (4.10-5.30); RED CELL DISTRIBUTION WIDTH 13.3 % (11.5-14.5); WHITE BLOOD COUNT 15.5 K/mm3 (4.8-10.8)
[2020-08-14 11:59] LABS: ALBUMIN 3.8 g/dL (3.5-5.0); POTASSIUM 4.1 mmol/L (3.5-5.1)
[2020-08-14 12:00] LABS: CALCIUM 8.7 mg/dL (8.3-10.5)
[2020-08-14 12:01] LABS: TOTAL PROTEIN 7.7 g/dL (6.4-8.3)
[2020-08-14 12:03] LABS: TOTAL BILIRUBIN 0.2 mg/dL (0.2-1.2)
[2020-08-14 12:13] LABS: NEU # 11.6 (1.40-6.50)
[2020-08-14 12:57] LABS: ERYTHROCYTE SEDIMENTATION RATE 55 mm/hr (0-30)
== END ==
LOC: LAB 10:57
PROVIDERS: Internal Medicine
DX: M06.9 Rheumatoid arthritis, unspecified (principal); E11.9 Type 2 diabetes mellitus without complications; E03.9 Hypothyroidism, unspecified

== ENCOUNTER → 2020-11-13 | Outpatient (CLI) | payer MEDICARE, MEDICAID ==
[2020-11-13 12:07] VITALS: BP 114/72
[2020-11-13 12:22] LABS: ALBUMIN 3.7 g/dL (3.5-5.0); POTASSIUM 3.6 mmol/L (3.5-5.1)
[2020-11-13 12:24] LABS: TOTAL PROTEIN 7.1 g/dL (6.4-8.3)
[2020-11-13 12:26] LABS: TOTAL BILIRUBIN 0.2 mg/dL (0.2-1.2)
== END ==
LOC: LAB 11:34 → AMSURD 11:34
PROVIDERS: Internal Medicine
DX: K90.9 Intestinal malabsorption, unspecified (principal); E78.2 Mixed hyperlipidemia; E11.9 Type 2 diabetes mellitus without complications; M06.9 Rheumatoid arthritis, unspecified

== ENCOUNTER → 2021-01-08 | Outpatient (CLI) | payer MEDICARE, MEDICAID | LOC: RAD 11:33 | DX: M25.551 Pain in right hip (principal); M25.552 Pain in left hip ==

== ENCOUNTER → 2021-05-21 | Outpatient (CLI) | payer MEDICARE, MEDICAID ==
[~2021-05-21] VITALS: Ht 160 cm; Wt 107.3 kg
[2021-05-21 12:20] VITALS: BP 133/84
[2021-05-21 12:28] LABS: BASO # 0.06 K/mm3 (0.02-0.10); EOS # 0.31 K/mm3 (0.04-0.40); EOS % 2.7 % (1.0-5.0); HEMATOCRIT 41.6 % (37.0-47.0); HEMOGLOBIN 13.2 g/dL (12.5-16.0); LYMPH# 2.14 K/mm3 (1.50-4.00); MEAN CELL VOLUME 94 fl (78-100); MEAN CORPUSCULAR HEMOGLOBIN 30 pg (27-31); MEAN CORPUSCULAR HGB CONC 32 g/dL (33-37); MEAN PLATELET VOLUME 9.7 fl (7.4-10.4); MONO # 0.88 K/mm3 (0.20-0.80); NEU # 8.03 K/mm3 (1.40-6.50); PLATELET COUNT 316 K/mm3 (130-400); RED BLOOD COUNT 4.41 M/mm3 (4.10-5.30); RED CELL DISTRIBUTION WIDTH 12.9 % (11.5-14.5); WHITE BLOOD COUNT 11.5 K/mm3 (4.8-10.8)
[2021-05-21 14:06] LABS: ALBUMIN 3.8 g/dL (3.5-5.0); POTASSIUM 3.6 mmol/L (3.5-5.1)
[2021-05-21 14:07] LABS: CALCIUM 9.2 mg/dL (8.3-10.5)
[2021-05-21 14:08] LABS: TOTAL PROTEIN 7.6 g/dL (6.4-8.3)
[2021-05-21 14:10] LABS: TOTAL BILIRUBIN 0.2 mg/dL (0.2-1.2)
== END ==
LOC: LAB 11:35
PROVIDERS: Internal Medicine
DX: E03.9 Hypothyroidism, unspecified (principal); K90.9 Intestinal malabsorption, unspecified; E78.2 Mixed hyperlipidemia; E11.9 Type 2 diabetes mellitus without complications
CPT/HCPCS: J1644

== ENCOUNTER → 2021-08-14 | Outpatient (CLI) | payer MEDICARE, MEDICAID ==
[2021-08-14 14:48] LABS: BASO # 0.05 K/mm3 (0.02-0.10); EOS # 0.23 K/mm3 (0.04-0.40); HEMATOCRIT 42.5 % (37.0-47.0); HEMOGLOBIN 13.7 g/dL (12.5-16.0); LYMPH# 2.34 K/mm3 (1.50-4.00); MEAN CELL VOLUME 93 fl (78-100); MEAN CORPUSCULAR HEMOGLOBIN 30 pg (27-31); MEAN CORPUSCULAR HGB CONC 32 g/dL (33-37); MEAN PLATELET VOLUME 9.7 fl (7.4-10.4); MONO # 0.76 K/mm3 (0.20-0.80); NEU # 7.86 K/mm3 (1.40-6.50); PLATELET COUNT 314 K/mm3 (130-400); RED BLOOD COUNT 4.56 M/mm3 (4.10-5.30); RED CELL DISTRIBUTION WIDTH 12.4 % (11.5-14.5); WHITE BLOOD COUNT 11.3 K/mm3 (4.8-10.8)
[2021-08-14 15:01] LABS: ALBUMIN 4.1 g/dL (3.5-5.0); POTASSIUM 4.1 mmol/L (3.5-5.1)
[2021-08-14 15:02] LABS: CALCIUM 9.9 mg/dL (8.3-10.5)
[2021-08-14 15:04] LABS: TOTAL PROTEIN 7.9 g/dL (6.4-8.3)
[2021-08-14 15:05] LABS: TOTAL BILIRUBIN 0.3 mg/dL (0.2-1.2)
== END ==
LOC: AMSURD 12:10 → LAB 13:55
PROVIDERS: Internal Medicine
DX: M06.9 Rheumatoid arthritis, unspecified (principal); E11.9 Type 2 diabetes mellitus without complications; J43.9 Emphysema, unspecified; K31.84 Gastroparesis; F25.9 Schizoaffective disorder, unspecified; G47.33 Obstructive sleep apnea (adult) (pediatric); H61.23 Impacted cerumen, bilateral
CPT/HCPCS: J1644

== ENCOUNTER → 2021-11-13 | Outpatient (CLI) | payer MEDICARE, MEDICAID ==
[2021-11-13 15:33] LABS: BASO # 0.08 K/mm3 (0.02-0.10); EOS # 0.22 K/mm3 (0.04-0.40); EOS % 1.9 % (1.0-5.0); HEMOGLOBIN 14.1 g/dL (12.5-16.0); LYMPH# 2.48 K/mm3 (1.50-4.00); MEAN CELL VOLUME 92 fl (78-100); MEAN CORPUSCULAR HEMOGLOBIN 30 pg (27-31); MEAN CORPUSCULAR HGB CONC 32 g/dL (33-37); MEAN PLATELET VOLUME 9.6 fl (7.4-10.4); MONO # 0.73 K/mm3 (0.20-0.80); NEU # 7.84 K/mm3 (1.40-6.50); PLATELET COUNT 356 K/mm3 (130-400); RED BLOOD COUNT 4.77 M/mm3 (4.10-5.30); RED CELL DISTRIBUTION WIDTH 12.2 % (11.5-14.5); WHITE BLOOD COUNT 11.4 K/mm3 (4.8-10.8)
[2021-11-13 16:24] LABS: URINE WBC 0 /hpf (0-3)
[2021-11-13 16:27] LABS: POTASSIUM 3.9 mmol/L (3.5-5.1)
[2021-11-13 16:28] LABS: ALBUMIN 4.1 g/dL (3.5-5.0)
[2021-11-13 16:29] LABS: CALCIUM 9.6 mg/dL (8.3-10.5)
[2021-11-13 16:30] LABS: TOTAL PROTEIN 8.3 g/dL (6.4-8.3)
[2021-11-13 16:32] LABS: TOTAL BILIRUBIN 0.3 mg/dL (0.2-1.2)
[2021-11-13 16:49] LABS: ERYTHROCYTE SEDIMENTATION RATE 54 mm/hr (0-30)
[2021-11-13 16:54] LABS: URINE APPEARANCE CLEAR; URINE BILIRUBIN NEGATIVE (NEGATIVE); URINE BLOOD NEGATIVE (NEGATIVE); URINE COLOR YELLOW; URINE GLUCOSE NEGATIVE (NEGATIVE); URINE KETONE NEGATIVE (NEGATIVE); URINE LEUKOCYTE ESTERASE NEGATIVE (NEGATIVE); URINE NITRATE NEGATIVE (NEGATIVE); URINE PROTEIN(semi-quant) NEGATIVE (NEGATIVE); URINE UROBILINOGEN NORMAL (NORMAL)
[2021-11-14 01:57] LABS: CREATININE OTHER SOURCE 11 mg/dL (())
== END ==
LOC: AMSURD 11:51 → LAB 14:13
PROVIDERS: Internal Medicine
DX: M51.35 Other intervertebral disc degeneration, thoracolumbar region (principal); E11.9 Type 2 diabetes mellitus without complications; K90.9 Intestinal malabsorption, unspecified; E78.2 Mixed hyperlipidemia; E03.9 Hypothyroidism, unspecified; M06.9 Rheumatoid arthritis, unspecified

== ENCOUNTER → 2022-02-09 | Outpatient (CLI) | payer MEDICARE, MEDICAID ==
[~2022-02-09] VITALS: Ht 160 cm; Wt 107.3 kg
[2022-02-09 15:00] VITALS: BP 117/75
[2022-02-09 15:50] LABS: BASO # 0.08 K/mm3 (0.02-0.10); EOS # 0.28 K/mm3 (0.04-0.40); EOS % 2.5 % (1.0-5.0); HEMATOCRIT 44.3 % (37.0-47.0); HEMOGLOBIN 13.9 g/dL (12.5-16.0); LYMPH# 2.18 K/mm3 (1.50-4.00); MEAN CELL VOLUME 93 fl (78-100); MEAN CORPUSCULAR HEMOGLOBIN 29 pg (27-31); MEAN CORPUSCULAR HGB CONC 31 g/dL (33-37); MEAN PLATELET VOLUME 10.5 fl (7.4-10.4); NEU # 7.61 K/mm3 (1.40-6.50); PLATELET COUNT 338 K/mm3 (130-400); RED BLOOD COUNT 4.75 M/mm3 (4.10-5.30); RED CELL DISTRIBUTION WIDTH 12.6 % (11.5-14.5)
[2022-02-09 16:03] LABS: ALBUMIN 4.1 g/dL (3.5-5.0)
[2022-02-09 16:04] LABS: CALCIUM 9.4 mg/dL (8.3-10.5)
[2022-02-09 16:05] LABS: TOTAL PROTEIN 7.8 g/dL (6.4-8.3)
[2022-02-09 16:07] LABS: TOTAL BILIRUBIN 0.4 mg/dL (0.2-1.2)
[2022-02-09 16:56] LABS: ERYTHROCYTE SEDIMENTATION RATE 57 mm/hr (0-30)
== END ==
LOC: LAB 14:27 → AMSURD 14:27
PROVIDERS: Internal Medicine
DX: J43.9 Emphysema, unspecified (principal); M06.9 Rheumatoid arthritis, unspecified; K31.84 Gastroparesis; F25.9 Schizoaffective disorder, unspecified; K90.9 Intestinal malabsorption, unspecified; L66.9 Cicatricial alopecia, unspecified; E03.9 Hypothyroidism, unspecified; G47.33 Obstructive sleep apnea (adult) (pediatric); E11.9 Type 2 diabetes mellitus without complications
CPT/HCPCS: J1644

== ENCOUNTER → 2022-05-20 | Outpatient (CLI) | payer MEDICARE, MEDICAID ==
[~2022-05-20] VITALS: Ht 160 cm; Wt 107.3 kg
[2022-05-20 15:22] LABS: BASO # 0.06 K/mm3 (0.02-0.10); EOS # 0.27 K/mm3 (0.04-0.40); EOS % 2.3 % (1.0-5.0); HEMATOCRIT 41.4 % (37.0-47.0); HEMOGLOBIN 13.3 g/dL (12.5-16.0); LYMPH# 2.46 K/mm3 (1.50-4.00); MEAN CELL VOLUME 92 fl (78-100); MEAN CORPUSCULAR HEMOGLOBIN 30 pg (27-31); MEAN CORPUSCULAR HGB CONC 32 g/dL (33-37); MEAN PLATELET VOLUME 9.6 fl (7.4-10.4); MONO # 0.81 K/mm3 (0.20-0.80); NEU # 8.04 K/mm3 (1.40-6.50); PLATELET COUNT 313 K/mm3 (130-400); RED BLOOD COUNT 4.49 M/mm3 (4.10-5.30); RED CELL DISTRIBUTION WIDTH 12.3 % (11.5-14.5); WHITE BLOOD COUNT 11.7 K/mm3 (4.8-10.8)
[2022-05-20 15:29] LABS: ALBUMIN 4.1 g/dL (3.5-5.0); POTASSIUM 3.7 mmol/L (3.5-5.1)
[2022-05-20 15:32] LABS: TOTAL PROTEIN 8.1 g/dL (6.4-8.3)
[2022-05-20 15:34] LABS: TOTAL BILIRUBIN 0.3 mg/dL (0.2-1.2)
[2022-05-20 16:33] LABS: ERYTHROCYTE SEDIMENTATION RATE 53 mm/hr (0-30)
== END ==
LOC: AMSURD 14:40 → LAB 14:40
PROVIDERS: Internal Medicine
DX: M06.9 Rheumatoid arthritis, unspecified (principal); L66.9 Cicatricial alopecia, unspecified; E78.2 Mixed hyperlipidemia; Z23 Encounter for immunization; E03.9 Hypothyroidism, unspecified; K90.9 Intestinal malabsorption, unspecified; G47.33 Obstructive sleep apnea (adult) (pediatric); J43.9 Emphysema, unspecified; K31.84 Gastroparesis; E11.9 Type 2 diabetes mellitus without complications; F25.9 Schizoaffective disorder, unspecified; M25.552 Pain in left hip
CPT/HCPCS: J1644

== ENCOUNTER 2022-06-21 09:16 | Emergency (ER) | payer MEDICARE, MEDICAID ==
[~2022-06-21] VITALS: Ht 154.9 cm; Wt 107.9 kg
[2022-06-21] MEDS ORDERED: OZEMPIC1 MG/0.71 SQ (10:20)
[2022-06-21 10:21] LABS: BASO # 0.04 K/mm3 (0.02-0.10); EOS # 0.11 K/mm3 (0.04-0.40); HEMATOCRIT 39.2 % (37.0-47.0); HEMOGLOBIN 12.4 g/dL (12.5-16.0); LYMPH# 1.03 K/mm3 (1.50-4.00); MEAN CELL VOLUME 96 fl (78-100); MEAN CORPUSCULAR HEMOGLOBIN 30 pg (27-31); MEAN CORPUSCULAR HGB CONC 32 g/dL (33-37); MEAN PLATELET VOLUME 9.5 fl (7.4-10.4); MONO # 1.29 K/mm3 (0.20-0.80); NEU # 8.72 K/mm3 (1.40-6.50); PLATELET COUNT 257 K/mm3 (130-400); RED BLOOD COUNT 4.09 M/mm3 (4.10-5.30); RED CELL DISTRIBUTION WIDTH 12.7 % (11.5-14.5); WHITE BLOOD COUNT 11.2 K/mm3 (4.8-10.8)
[2022-06-21 10:26] LABS: ALBUMIN 3.7 g/dL (3.5-5.0)
[2022-06-21 10:27] LABS: SODIUM 138 mmol/L (136-145)
[2022-06-21 10:28] LABS: CALCIUM 9.3 mg/dL (8.3-10.5)
[2022-06-21 10:29] LABS: GLUCOSE 138 mg/dL (65-105); TOTAL PROTEIN 7.3 g/dL (6.4-8.3)
[2022-06-21 10:30] LABS: CARBON DIOXIDE 32 mmol/L (22-29)
[2022-06-21 10:31] LABS: TOTAL BILIRUBIN 0.2 mg/dL (0.2-1.2)
[2022-06-21 10:34] LABS: AST-SGOT 29 U/L (5-34)
[2022-06-21 10:36] LABS: ALT/SGPT 47 U/L (0-55)
[2022-06-21 10:53] LABS: D-DIMER 0.59 mg/L FEU (0.15-0.50)
[2022-06-21 10:59] LABS: TROPONIN-I < 0.030 ng/mL (<0.030)
[2022-06-21] MEDS ORDERED: MOLNUPIRAVIR (200 MG PO (13:16)
[2022-06-21 13:45] VITALS: BP 113/72
== END 2022-06-21 13:47 | disposition home or self-care (01) ==
LOC: ED 09:16
PROVIDERS: Nurse Practitioner
DX: U07.1 COVID-19 (principal); R79.1 Abnormal coagulation profile; R06.02 Shortness of breath; Z28.310 Unvaccinated for COVID-19
CPT/HCPCS: Q9967

== ENCOUNTER → 2023-07-15 | Outpatient (CLI) | payer MEDICARE, MEDICAID ==
[~2023-07-15] VITALS: Ht 154.9 cm; Wt 107.9 kg
[~2023-07-15] MED LIST changes: +MOLNUPIRAVIR (200 MG PO; +OZEMPIC1 MG/0.71 SQ
[2023-07-15 14:15] VITALS: BP 128/79
[2023-07-15 14:53] LABS: BASO # 0.06 K/mm3 (0.02-0.10); EOS % 2.8 % (1.0-5.0); HEMATOCRIT 41.7 % (37.0-47.0); HEMOGLOBIN 13.4 g/dL (12.5-16.0); LYMPH# 2.35 K/mm3 (1.50-4.00); MEAN CELL VOLUME 91 fl (78-100); MEAN CORPUSCULAR HEMOGLOBIN 29 pg (27-31); MEAN CORPUSCULAR HGB CONC 32 g/dL (33-37); MEAN PLATELET VOLUME 9.7 fl (7.4-10.4); MONO # 0.91 K/mm3 (0.20-0.80); NEU # 7.24 K/mm3 (1.40-6.50); PLATELET COUNT 348 K/mm3 (130-400); RED BLOOD COUNT 4.57 M/mm3 (4.10-5.30); RED CELL DISTRIBUTION WIDTH 12.6 % (11.5-14.5); WHITE BLOOD COUNT 10.9 K/mm3 (4.8-10.8)
[2023-07-15 15:02] LABS: ALBUMIN 4.2 g/dL (3.5-5.0)
[2023-07-15 15:03] LABS: CALCIUM 9.7 mg/dL (8.3-10.5)
[2023-07-15 15:04] LABS: TOTAL PROTEIN 7.9 g/dL (6.4-8.3)
[2023-07-15 15:06] LABS: TOTAL BILIRUBIN 0.3 mg/dL (0.2-1.2)
[2023-07-15 15:11] LABS: MAGNESIUM 1.91 mg/dL (1.60-2.60)
== END ==
LOC: LAB 14:06
PROVIDERS: Internal Medicine
DX: E11.9 Type 2 diabetes mellitus without complications (principal); E03.9 Hypothyroidism, unspecified; E78.2 Mixed hyperlipidemia; M06.9 Rheumatoid arthritis, unspecified
CPT/HCPCS: J1644

== ENCOUNTER → 2023-08-12 | Outpatient (CLI) | payer MEDICARE, MEDICAID | LOC: RAD 14:54 | DX: M25.851 Other specified joint disorders, right hip (principal); M25.852 Other specified joint disorders, left hip ==

== ENCOUNTER → 2023-10-24 | Outpatient (CLI) | payer MEDICARE, MEDICAID ==
[~2023-10-24] VITALS: Ht 154.9 cm; Wt 92.3 kg
[2023-10-24 11:16] LABS: BASO # 0.03 K/mm3 (0.02-0.10); EOS # 0.19 K/mm3 (0.04-0.40); HEMATOCRIT 41.8 % (37.0-47.0); HEMOGLOBIN 13.4 g/dL (12.5-16.0); MEAN CELL VOLUME 92 fl (78-100); MEAN CORPUSCULAR HEMOGLOBIN 30 pg (27-31); MEAN CORPUSCULAR HGB CONC 32 g/dL (33-37); MEAN PLATELET VOLUME 9.8 fl (7.4-10.4); MONO # 0.64 K/mm3 (0.20-0.80); NEU # 7.25 K/mm3 (1.40-6.50); PLATELET COUNT 314 K/mm3 (130-400); RED BLOOD COUNT 4.55 M/mm3 (4.10-5.30); RED CELL DISTRIBUTION WIDTH 12.6 % (11.5-14.5); WHITE BLOOD COUNT 9.7 K/mm3 (4.8-10.8)
[2023-10-24 11:25] LABS: ALBUMIN 3.9 g/dL (3.5-5.0)
[2023-10-24 11:26] LABS: CALCIUM 9.7 mg/dL (8.3-10.5)
[2023-10-24 11:27] LABS: TOTAL PROTEIN 7.6 g/dL (6.4-8.3)
[2023-10-24 11:34] LABS: MAGNESIUM 2.03 mg/dL (1.60-2.60)
[2023-10-24 11:58] LABS: TOTAL BILIRUBIN 0.3 mg/dL (0.2-1.2)
== END ==
LOC: LAB 10:05
PROVIDERS: Internal Medicine
DX: E11.9 Type 2 diabetes mellitus without complications (principal); E03.9 Hypothyroidism, unspecified; K90.9 Intestinal malabsorption, unspecified; E78.2 Mixed hyperlipidemia; M06.9 Rheumatoid arthritis, unspecified
CPT/HCPCS: J1644

== ENCOUNTER → 2024-01-02 | Outpatient (CLI) | payer MEDICARE, MEDICAID ==
[~2024-01-02] VITALS: Ht 154.9 cm; Wt 92.3 kg
[~2024-01-02] MED LIST changes: +DOXYCYCLINE HY100 M5 PO; +Denosumab 60 MG/ML SYRINGE SQ ONE; +HYDROCORTISONE10 M1 PO; +PROLIA60 MG/ML SC; +SYMBICORT1 AE3 IH; +ZOCOR20 M1 PO
[2024-01-02 13:21] VITALS: BP 119/77
== END ==
LOC: AMSURD 13:03
DX: M81.0 Age-related osteoporosis without current pathological fracture (principal)
CPT/HCPCS: J0897

== ENCOUNTER → 2024-02-10 | Outpatient (CLI) | payer MEDICARE, MEDICAID ==
[~2024-02-10] MED LIST changes: -Denosumab 60 MG/ML SYRINGE SQ ONE
[2024-02-10 15:13] LABS: BASO # 0.04 K/mm3 (0.02-0.10); EOS # 0.23 K/mm3 (0.04-0.40); EOS % 2.1 % (1.0-5.0); HEMATOCRIT 37.2 % (37.0-47.0); HEMOGLOBIN 12.1 g/dL (12.5-16.0); LYMPH# 2.08 K/mm3 (1.50-4.00); MEAN CELL VOLUME 92 fl (78-100); MEAN CORPUSCULAR HEMOGLOBIN 30 pg (27-31); MEAN CORPUSCULAR HGB CONC 33 g/dL (33-37); MEAN PLATELET VOLUME 9.8 fl (7.4-10.4); MONO # 0.92 K/mm3 (0.20-0.80); NEU # 7.65 K/mm3 (1.40-6.50); PLATELET COUNT 324 K/mm3 (130-400); RED BLOOD COUNT 4.03 M/mm3 (4.10-5.30); RED CELL DISTRIBUTION WIDTH 12.9 % (11.5-14.5)
[2024-02-10 15:22] LABS: CALCIUM 9.8 mg/dL (8.3-10.5)
[2024-02-10 15:23] LABS: TOTAL PROTEIN 7.2 g/dL (6.4-8.3)
[2024-02-10 15:25] LABS: TOTAL BILIRUBIN 0.3 mg/dL (0.2-1.2)
[2024-02-10 15:29] LABS: MAGNESIUM 1.85 mg/dL (1.60-2.60)
== END ==
LOC: LAB 14:08
PROVIDERS: Internal Medicine
DX: M06.9 Rheumatoid arthritis, unspecified (principal); E11.9 Type 2 diabetes mellitus without complications

== ENCOUNTER → 2024-06-09 | Outpatient (CLI) | payer MEDICARE, MEDICAID ==
[2024-06-09 10:25] LABS: BASO # 0.04 K/mm3 (0.02-0.10); EOS # 0.22 K/mm3 (0.04-0.40); EOS % 2.1 % (1.0-5.0); HEMATOCRIT 36.2 % (37.0-47.0); HEMOGLOBIN 11.7 g/dL (12.5-16.0); LYMPH# 1.89 K/mm3 (1.50-4.00); MEAN CELL VOLUME 94 fl (78-100); MEAN CORPUSCULAR HEMOGLOBIN 30 pg (27-31); MEAN CORPUSCULAR HGB CONC 32 g/dL (33-37); MEAN PLATELET VOLUME 9.8 fl (7.4-10.4); MONO # 0.79 K/mm3 (0.20-0.80); NEU # 7.67 K/mm3 (1.40-6.50); PLATELET COUNT 294 K/mm3 (130-400); RED BLOOD COUNT 3.85 M/mm3 (4.10-5.30); RED CELL DISTRIBUTION WIDTH 12.6 % (11.5-14.5); WHITE BLOOD COUNT 10.7 K/mm3 (4.8-10.8)
[2024-06-09 10:30] LABS: ALBUMIN 3.9 g/dL (3.5-5.0)
[2024-06-09 10:31] LABS: CALCIUM 9.9 mg/dL (8.3-10.5)
[2024-06-09 10:32] LABS: TOTAL PROTEIN 7.1 g/dL (6.4-8.3)
[2024-06-09 10:34] LABS: TOTAL BILIRUBIN 0.2 mg/dL (0.2-1.2)
[2024-06-09 10:39] LABS: MAGNESIUM 2.02 mg/dL (1.60-2.60)
[2024-06-09 10:46] LABS: PH-URINE 5.5 (5.0 - 8.0); URINE APPEARANCE CLEAR (CLEAR); URINE BILIRUBIN NEGATIVE (NEGATIVE); URINE BLOOD 2+ (NEGATIVE); URINE COLOR YELLOW (YELLOW); URINE GLUCOSE NEGATIVE (NEGATIVE); URINE KETONE NEGATIVE (NEGATIVE); URINE LEUKOCYTE ESTERASE NEGATIVE (NEGATIVE); URINE NITRATE NEGATIVE (NEGATIVE); URINE PROTEIN(semi-quant) NEGATIVE (NEGATIVE)
[2024-06-09 10:47] LABS: URINE MUCUS PRESENT (NOT PRESENT)
[2024-06-09 22:17] LABS: FOLATE (FOLIC ACID) 17.6 ng/mL (7.0-31.4)
== END ==
LOC: LAB 09:51 → AMSURD 09:51
PROVIDERS: Internal Medicine
DX: E03.9 Hypothyroidism, unspecified (principal); K90.9 Intestinal malabsorption, unspecified; E11.9 Type 2 diabetes mellitus without complications; E78.2 Mixed hyperlipidemia; M06.9 Rheumatoid arthritis, unspecified; S36.113A Laceration of liver, unspecified degree, initial encounter

== ENCOUNTER → 2024-06-18 | Outpatient (CLI) | payer MEDICARE, MEDICAID ==
[~2024-06-18] VITALS: Ht 154.9 cm; Wt 92.3 kg
[~2024-06-18] MED LIST changes: +Denosumab 60 MG/ML SYRINGE SQ ONE
[2024-06-18 09:55] VITALS: BP 122/65
== END ==
LOC: AMSURD 09:43
DX: Z51.81 Encounter for therapeutic drug level monitoring (principal); M81.0 Age-related osteoporosis without current pathological fracture
CPT/HCPCS: J0897

== ENCOUNTER → 2024-07-20 | Outpatient (CLI) | payer MEDICARE, MEDICAID ==
[~2024-07-20] MED LIST changes: -Denosumab 60 MG/ML SYRINGE SQ ONE; +Iohexol 300 - 100 ML VIAL IV ONE; +NS 100 ML IV ONE
[2024-07-20 14:49] LABS: BASO # 0.04 K/mm3 (0.02-0.10); EOS # 0.23 K/mm3 (0.04-0.40); EOS % 1.9 % (1.0-5.0); HEMATOCRIT 38.5 % (37.0-47.0); HEMOGLOBIN 12.5 g/dL (12.5-16.0); LYMPH# 2.43 K/mm3 (1.50-4.00); MEAN CELL VOLUME 93 fl (78-100); MEAN CORPUSCULAR HEMOGLOBIN 30 pg (27-31); MEAN CORPUSCULAR HGB CONC 33 g/dL (33-37); MEAN PLATELET VOLUME 9.5 fl (7.4-10.4); MONO # 0.87 K/mm3 (0.20-0.80); NEU # 8.63 K/mm3 (1.40-6.50); PLATELET COUNT 319 K/mm3 (130-400); RED BLOOD COUNT 4.15 M/mm3 (4.10-5.30); RED CELL DISTRIBUTION WIDTH 12.3 % (11.5-14.5); WHITE BLOOD COUNT 12.2 K/mm3 (4.8-10.8)
[2024-07-20 14:55] LABS: ALBUMIN 4.1 g/dL (3.5-5.0)
[2024-07-20 14:56] LABS: CALCIUM 9.4 mg/dL (8.3-10.5)
[2024-07-20 14:59] LABS: TOTAL BILIRUBIN 0.3 mg/dL (0.2-1.2)
[2024-07-20 15:04] LABS: MAGNESIUM 1.69 mg/dL (1.60-2.60)
== END ==
LOC: RAD 14:11
PROVIDERS: Internal Medicine
DX: K76.0 Fatty (change of) liver, not elsewhere classified (principal); S36.113A Laceration of liver, unspecified degree, initial encounter; M06.9 Rheumatoid arthritis, unspecified; N20.0 Calculus of kidney
CPT/HCPCS: Q9967

== ENCOUNTER → 2024-08-02 | Outpatient (CLI) | payer MEDICARE, MEDICAID ==
[~2024-08-02] VITALS: Ht 154.9 cm; Wt 92.3 kg
[~2024-08-02] MED LIST changes: +Denosumab 60 MG/ML SYRINGE SQ SCH; -Iohexol 300 - 100 ML VIAL IV ONE; -NS 100 ML IV ONE
[2024-08-02 14:00] VITALS: BP 138/78
== END ==
LOC: AMSURD 12:49
DX: M81.0 Age-related osteoporosis without current pathological fracture (principal); S36.113A Laceration of liver, unspecified degree, initial encounter
CPT/HCPCS: J0897